=== PATIENT | male | born 1965 | race Caucasian/White ===

== ENCOUNTER 2017-08-19 11:10 | Emergency (ER) | payer OTHER ==
[~2017-08-19] VITALS: Ht 180.3 cm; Wt 79.0 kg
[2017-08-19] MEDS ORDERED: AMOXICILLIN875 MG PO (11:43)
[2017-08-19 12:02] VITALS: BP 140/93
== END 2017-08-19 12:02 | disposition home or self-care (01) | DRG 605 ==
LOC: ED 11:10
DX: S51.851A Open bite of right forearm, initial encounter (principal); L08.9 Local infection of the skin and subcutaneous tissue, unspecified; W54.0XXA Bitten by dog, initial encounter; Y92.009 Unspecified place in unspecified non-institutional (private) residence as the place of occurrence of the external cause